=== PATIENT | female | born 1995 | race Caucasian/White ===

== ENCOUNTER 2020-09-12 06:23 | Emergency (ER) | payer BC, OTHER ==
[~2020-09-12] VITALS: Ht 165.1 cm; Wt 52.2 kg
--- NOTE | 2020-09-12 06:46 | NUR ---
Pt came to the er c/o midsternal burning chest pain since 1 pm yesterday. Pt had alcohol in the am. Pt aaox4, vss,respirations even and unlabored. Pt connected to the monitor and pox
[2020-09-12] MEDS ORDERED: MAG HYDROX/AL HYDROX/SIMETH 30 ML UDC ONE (06:50)
[2020-09-12] MEDS ORDERED: PANTOPRAZOLE 40 MG VIAL ONE (06:50)
[2020-09-12] MEDS ORDERED: LIDOCAINE VISCOUS 2% UD 15 ML UDC ONE (06:50)
[2020-09-12] MEDS ORDERED: ONDANSETRON HCL/PF 4 MG/2 ML VIAL ONE (06:50)
[2020-09-12] MEDS ORDERED: MAG HYDROX/AL HYDROX/SIMETH 30 ML UDC PO ONE (07:00)
[2020-09-12] MEDS ORDERED: ONDANSETRON HCL/PF 4 MG/2 ML VIAL IVP ONE (07:00)
[2020-09-12] MEDS ORDERED: PANTOPRAZOLE 40 MG VIAL IV ONE (07:00)
[2020-09-12] MEDS ORDERED: LIDOCAINE VISCOUS 2% UD 15 ML UDC MM ONE (07:00)
[2020-09-12] MEDS ORDERED: IV NS 0.9% 1,000 ML BAG IV ONE (07:00)
--- NOTE | 2020-09-12 07:05 | NUR ---
BLOOD COLLECTED AND SENT TO LAB
--- NOTE | 2020-09-12 07:11 | NUR ---
PT UNABLE TO PROVIDE URINE AT THIS TIME. MD GUZMÁN
--- NOTE | 2020-09-12 07:22 | NUR ---
REPORT GIVEN TO NICO DENG FOR JOSE ANGEL
[2020-09-12 07:28] LABS: BASOPHILS % (AUTO) 0.5 % (0.0-2.0); EOSINOPHILS % (AUTO) 0.7 % (0.0-6.0); HEMATOCRIT 40 % (33-45); LYMPHOCYTES % (AUTO) 22.4 % (20.0-44.0); MEAN CORPUSCULAR HGB CONC 35 g/dl (31.0-36.0); MEAN CORPUSCULAR VOLUME 88 fL (82-100); MONOCYTES # (AUTO) 0.7 /CMM (0.1-1.30); MONOCYTES % (AUTO) 7.9 % (2.0-12.0); NEUTROPHILS # (AUTO) 6.1 /CMM (1.8-8.9); NEUTROPHILS % (AUTO) 68.5 % (43.0-81.0); PLATELET COUNT (AUTO) 243 /CMM (150-450); RED BLOOD CELL COUNT(AUTO) 4.49 MIL/uL (4.0-5.2); WHITE BLOOD COUNT (AUTO) 8.9 K/uL (4.3-11.0)
[2020-09-12 07:47] LABS: CREATININE 0.7 mg/dL (0.6-1.3); POTASSIUM 3.8 mmol/L (3.5-5.1)
[2020-09-12 07:54] LABS: ALBUMIN 4.3 g/dL (3.4-5.0); BILIRUBIN,DIRECT 0.2 mg/dL (0.0-0.2); BILIRUBIN,TOTAL 0.9 mg/dL (0.2-1.0); TOTAL PROTEIN, SERUM 7.5 g/dL (6.4-8.2)
[2020-09-12] MEDS ORDERED: PANT40TA2 PO (08:02)
[2020-09-12] MEDS ORDERED: LORA-259 PO (08:02)
--- NOTE | 2020-09-12 08:41 | NUR ---
IV removed. Catheter intact and site benign. Pressure and 4x4 applied to site. No bleeding noted.
--- NOTE | 2020-09-12 08:41 | NUR ---
Patient discharged to home in stable condition. Written and verbal after care instructions given. Patient verbalizes understanding of instruction.
[2020-09-12 08:43] VITALS: BP 110/70
== END 2020-09-12 08:45 | disposition home or self-care (01) ==
LOC: ER 06:26
DX: K29.70 Gastritis, unspecified, without bleeding (principal); F41.9 Anxiety disorder, unspecified; Z79.899 Other long term (current) drug therapy
CPT/HCPCS: 80048; 80076; 85025; 96361; 96374; 99283; C9113; J2405; J7030; 36415